=== PATIENT | female | born 1990 | race American Indian/Alaskan Native ===

== ENCOUNTER 2018-07-28 21:34 | Emergency (ER) | payer OTHER ==
[2018-07-28 21:52] VITALS: BP 142/91
--- NOTE | 2018-07-29 00:44 | Emergency Department Report ---
ED Back Pain/Injury HPI - General Chief Complaint: Back Pain/Injury Stated Complaint: BACK PAIN Time Seen by Provider: 07/29/18 00:28 Source: patient Limitations: No Limitations - History of Present Illness Initial Comments: 28-year-old -[place] female presents to the emergency room for back pain 1 day. Patient denies any trauma has not taken anything for pain denies any dysuria no vaginal discharge last menstrual period 06/27/2018. Patient reports no past medical history takes no medications on a daily basis and has no known drug allergies. MD Complaint: back pain - Related Data Previous Rx's Medication Instructions Recorded Last Taken Type Acetaminophen/Codeine [Tylenol #3] 2 tab PO Q6HR PRN #30 tablet 05/25/14 Unknown Rx Labetalol [Labetalol 200mg TAB] 200 mg PO BID #60 tablet 05/25/14 Unknown Rx Lidocaine/Prilocaine [Emla Cream] 30 gm TP PRN PRN 1 Days cream..g. 05/25/14 U nknown Rx Acetaminophen [Acetaminophen TAB 320 mg PO Q8HR PRN #20 tab 12/20/15 Unknown Rx CHEW] Ibuprofen [Motrin 800 MG tab] 800 mg PO Q8HR PRN #15 tablet 07/29/18 Unknown Rx Allergies Allergy/AdvReac Type Severity Reaction Status Date / Time No Known Allergies Allergy Unverified 10/26/13 15:18 ED Review of Systems ROS: Stated complaint: BACK PAIN Other details as noted in HPI Comment: All other systems reviewed and negative Musculoskeletal: back pain ED Past Medical Hx - Past Medical History Previous Medical History?: Yes Hx Hypertension: No Hx Congestive Heart Failure: No Hx Diabetes: No Hx Deep Vein Thrombosis: No Hx Renal Disease: No Hx Sickle Cell Disease: No Hx Seizures: No Hx Asthma: No Hx COPD: No Hx HIV: No Additional medical history: Morbid Obesity - Surgical History Past Surgical History?: Yes Additional Surgical History: - Social History Smoking Status: Current Some Day Smoker Substance Use Type: Marijuana - Medications Home Medications: Home Medications Medication Instructions Recorded Confirmed Last Taken Type Acetaminophen/Codeine [Tylenol #3] 2 tab PO Q6HR PRN #30 tablet 05/25/14 Unknown Rx Labetalol [Labetalol 200mg TAB] 200 mg PO BID #60 tablet 05/25/14 Unknown Rx Lidocaine/Prilocaine [Emla Cream] 30 gm TP PRN PRN 1 Days cream..g. 05/25/14 Unknown Rx Acetaminophen [Acetaminophen TAB 320 mg PO Q8HR PRN #20 tab 12/20/15 Unknown Rx CHEW] Ibuprofen [Motrin 800 MG tab] 800 mg PO Q8HR PRN #15 tablet 07/29/18 Unknown Rx ED Physical Exam - General Limitations: No Limitations General appearance: alert, in no apparent distress, obese - Head Head exam: Present: atraumatic, normocephalic - Eye Eye exam: Present: normal appearance - ENT ENT exam: Present: mucous membranes moist - Neck Neck exam: Present: normal inspection, full ROM - Respiratory Respiratory exam: Present: normal lung sounds bilaterally. Absent: respiratory distress - Cardiovascular Cardiovascular Exam: Present: regular rate, normal rhythm. Absent: systolic murmur, diastolic murmur, rubs, gallop - Back Exam Back exam: Present: full ROM, paraspinal tenderness - Neurological Exam Neurological exam: Present: alert, oriented X3, normal gait - Psychiatric Psychiatric exam: Present: normal affect, normal mood - Skin Skin exam: Present: warm, dry, intact, normal color. Absent: rash ED Course Vital Signs 07/28/18 21:49 Temperature 98.4 F Pulse Rate 86 Respiratory 18 Rate Blood Pressure 142/91 O2 Sat by Pulse 99 Oximetry ED Medical Decision Making - Medical Decision Making 28-year-old -Hung[place] female comes in with back pain. 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 Patient is morbidly obese at a BMI of 52.1. Chest the patient that most likely due to her back pain is because of her job lifting heavy objects as well as being heavy. Critical care attestation.: If time is entered above; I have spent that time in minutes in the direct care of this critically ill patient, excluding procedure time. ED Disposition Clinical Impression: Morbid obesity with BMI of 50.0-59.9, adult Back pain Qualifiers: Back pain location: low back pain Disposition: - TO HOME OR SELFCARE Is pt being admited?: No Does the pt Need Aspirin: No Condition: Stable Instructions: Back Pain (ED) Additional Instructions: Take ibuprofen as needed for back pain. Follow-up with primary care provider to symptoms persist or gets worse. Prescriptions: Ibuprofen [Motrin 800 MG tab] 800 mg PO Q8HR PRN #15 tablet PRN Reason: Pain , Severe (7-10) Referrals: SANDRA GRACE MD [Primary Care Provider] - 3-5 Days
[2018-07-29 00:59] LABS: Amorphous Crystals,Urine 1+; Bilirubin,Urine NEG (Negative); Blood,Urine NEG (Negative); Color,Urine Yellow (Yellow); Protein,Urine <15 mg/dL mg/dL (Negative); Urobilinogen,Urine < 2.0 mg/dL (<2.0)
[2018-07-29 01:00] LABS: HCG Qualitative,Urine Negative (Negative)
[2018-07-29] MEDS ORDERED: TORADOL IM ONE (01:13)
== END 2018-07-29 01:28 | disposition home or self-care (01) ==
LOC: ED 21:34
DX: M54.9 Dorsalgia, unspecified (principal); E66.01 Morbid (severe) obesity due to excess calories; F17.200 Nicotine dependence, unspecified, uncomplicated; F12.10 Cannabis abuse, uncomplicated; Z68.43 Body mass index [BMI] 50.0-59.9, adult
CPT/HCPCS: 81001; 81025; 96372; 99283; J1885